=== PATIENT | male | born 1990 | race Two or more races ===

== ENCOUNTER 2024-09-11 18:49 | Emergency (ER) | payer MEDICAID ==
[~2024-09-11] VITALS: Ht 167.6 cm; Wt 63.6 kg
[~2024-09-11 18:49] MED LIST: LEVO750T40 PO
--- NOTE | 2024-09-11 19:41 | ED.PDOC ---
History of Present Illness HPI Comments 34 y/o M, with a history of alcohol induced seizures, is BIBA for c/o alcohol intoxication and possible fall-injury, today. Per EMS report, bystanders called after finding patient intoxicated outside of a grocery outlet following a supposed witnessed fall. On scene, patient was found in same intoxicated state, denying on sustaining any falls, today, but complaining of chronic left-hip pain. He was noted to have had an abrasion to the bridge of his nose and left- elbow from a fall he endorsed on having 1-2 weeks ago. At time of initial assessment with patient, patient is a poor historian and unable to comment further regarding his current intoxicated state or events aside from being told on needing to come to the ED. No family/education instructor present. Chief Complaint: ETOH Time Seen by MD: 19:10 Primary Care Provider: NONE Reviewed Notes: Nurses Notes, Phonograph Cartridge Assembler Notes, Medications, Allergies Allergies: Coded Allergies: NO KNOWN ALLERGIES (Unverified , 08/01/23) Home Meds Active Scripts Levofloxacin Hemihydrate (LEVOFLOXACIN) 750 Mg Tab, 1 TAB PO DAILY, #5 TAB Prov:MALORIE JACQUES MD 08/02/23 Information Source: Patient, Emergency Med Personnel Mode of Arrival: EMS Severity: Moderate Timing: Hours Duration: Since onset Prehospital treatment: 12 Lead EKG, Manager Employment Review of Systems: REVIEW OF SYSTEMS: No fever, no chills, HEENT: No neck pain, no blurred vision Cardiac: No chest pain. No palpitations. Lungs: No shortness of breath, GI: No abdominal pain, no vomiting Musculoskeletal: Left-hip pain, no back pain Skin: No rash, no wound Neuro: EtOH intoxication. No headache, no dizziness, no syncope Vital Signs Vital Signs Date Time Temp Pulse Resp B/P (MAP) Pulse Ox O2 Delivery O2 Flow Rate FiO2 09/11/24 22:58 97.5 94 21 127/93 (104) 98 97.5 09/11/24 22:58 Room Air* 0 21 Physical Exam General: Awake, alert and oriented. No acute distress. Skin: Skin in warm, dry and intact without rashes or lesions. HEENT: Left-conjunctival erythema. Abrasion to bridge of nose. Otherwise, the head is normocephalic and atraumatic. Right conjunctiva is clear without exudates or hemorrhage. Sclera is non-icteric. Neck: Normal range of motion. No JVD. Cardiac: Regular rate Respiratory: No signs of respiratory distress. No Stridor. Extremities: Upper and lower extremities are atraumatic in appearance without deformity. Neurological: Normal [id number] test. The patient is awake, alert and oriented to person, place, and time with normal speech. Speech is clear. There is no facial asymmetry. Normal gait. Psychiatric: Appropriate mood and affect. Good judgement and insight. Musculoskeletal: Left-paraspinal lumbar tenderness. Mild abrasion to left-elbow. Otherwise, normal inspection Past Medical History Past Medical History (Other): Alcohol induced seizures Surgical History: Denies all surgeries Family History Family History: Unknown Social History Smoker: Non-Smoker Alcohol: Heavy Drugs: Marijuana Lives In: Home Was a procedure done? Was a procedure done?: No Differential Dx Considerations may include: Alcohol intoxication, substance dependency, polysubstance abuse, toxic metabolic encephalopathy, electrolyte imbalance, dehydration, abrasions, contusions, fractures, dislocation, intracranial hemorrhage, among others X-Ray, Labs, Meds, VS Vital Signs Date Time Temp Pulse Resp B/P (MAP) Pulse Ox O2 Delivery O2 Flow Rate FiO2 09/11/24 22:58 97.5 94 21 127/93 (104) 98 97.5 09/11/24 22:58 20 98 Room Air* 0 21 09/11/24 18:51 97.1 130 20 145/100 (115) 98 97.1 Current Medications Medications (Trade) Dose Ordered Sig/Harriet Route Start Time Stop Time Status Last Admin Acetaminophen (Tylenol Tablet) 650 mg ONCE ONCE PO 09/11/24 19:15 09/11/24 19:16 DC 09/11/24 23:00 [place] [id number] Ph: [phone] DIAGNOSTIC IMAGING Diagnostic Imaging Report : [id number] Signed PATIENT: DAYANA GHOSH ACCT: [id number] UNIT: [id number] : 1990 LOC: ER ROOM / BED: / AGE / SEX: 34 / M ADM STATUS: REG ER SERVICE [id number] ORDERING PHYSICIAN: DARIEL BARRY MD PROCEDURE(s): LUMB2 - LUMBAR SPINE 3 VIEW REASON: Low back pain ORDER NUMBER(s): [id number], ACCESSION NUMBER(s): [id number] INDICATION: Low back pain COMPARISON: None TECHNIQUE: AP and lateral radiographs of the lumbar spine. FINDINGS: Mild thoracolumbar scoliosis convex to the right. No listhesis. The lumbar vertebral bodies, T11 and T12 are normal in appearance with no evidence of fracture. The intervertebral disc spaces are normal. Facet and SI joints appear unremarkable. IMPRESSION: No evidence of fracture in the lumbar spine. Mild thoracolumbar dextroscoliosis. Otherwise unremarkable study. ATED BY: LUCAS DUONG MD DICTATED DATE/TIME: 09/11/242148 SIGNED BY: LUCAS DUONG MD SIGNED DATE/TIME: 09/11/242148 CC: Time of 1ST Reevaluation: 19:40 Reevaluation 1ST: Unchanged Patient Education/Counseling: Need For Follow Up Family Education/Counseling: No Family Present Departure 1 Departure Time of Disposition: 01:52 Impression: Primary Impression: Low back pain Disposition: 01 HOME / SELF CARE / HOMELESS Condition: Stable Additional Instructions: ED DISCHARGE INSTRUCTIONS Instructions: Please read all instructions provided in this packet carefully. Although you have been discharged from the Emergency Department, this does not mean that you have a "clean bill of health". No definitive diagnosis for your symptoms has been made today. It is possible that you are in the process of developing a serious illness. This is why you must return to the ED without fail if any new or worsening symptoms (especially if your symptoms include chest pain, trouble breathing, abdominal pain, fever, headache, confusion, trouble seeing, or trouble walking) It is also very important that you see a primary care doctor within the next 3-5 days to follow up. If you are unable to get an appointment, return to the ED for re-evaluation. Back Pain: Care Instructions Table of Contents Overview How can you care for yourself at home? When should you call for help? Credits Overview In most cases, there isn't a clear cause for back pain. It may be related to problems with muscles and ligaments of the back. It may also be related to problems with the nerves, discs, or bones of the back. Moving, lifting, standing, sitting, or sleeping in an awkward way can strain the back. Arthritis is another cause of back pain. Although it may hurt a lot, back pain usually improves on its own within several weeks. Most people recover in 12 weeks or less. Using self-care, such as ice or heat and light activity (like walking) may help you feel better sooner. Follow-up care is a mallory part of your treatment and safety. Be sure to make and go to all appointments, and call your doctor if you are having problems. It's also a good idea to know your test results and keep a list of the medicines you take. How can you care for yourself at home? Sit or lie in positions that are most comfortable and reduce your pain. Try one of these positions when you lie down: Lie on your back with your knees bent and supported by pillows. Lie on the floor with your legs on the seat of a sofa or chair. Lie on your side with your knees and hips bent and a pillow between your legs. Lie on your stomach if it does not make pain worse. Do not sit up in bed, and avoid soft couches and twisted positions. Bed rest can help relieve pain at first, but it delays healing. Avoid bed rest after the first day of back pain. Change positions every 30 minutes. If you must sit for long periods of time, take breaks from sitting. Get up and walk around, or lie in a comfortable position. Try using a heating pad on a low or medium setting for 15 to 20 minutes every 2 or 3 hours. Try a warm shower in place of one session with the heating pad. You can also try an ice pack for 10 to 15 minutes every 2 to 3 hours. Put a thin cloth between the ice pack and your skin. Take pain medicines exactly as directed. If the doctor gave you a prescription medicine for pain, take it as prescribed. If you are not taking a prescription pain medicine, ask your doctor if you can take an ymam-cho-axvbanx medicine. Take short walks several times a day. You can start with 5 to 10 minutes, 3 or 4 times a day, and work up to longer walks. Walk on level surfaces and avoid hills and stairs until your back is better. Return to work and other activities as soon as you can. Continued rest without activity is usually not good for your back. To prevent future back pain, do exercises to stretch and strengthen your back and stomach. Learn how to use good posture, safe lifting techniques, and proper body mechanics. When should you call for help? Call your doctor now or seek immediate medical care if: You have new or worsening numbness in your legs. You have new or worsening weakness in your legs. (This could make it hard to stand up.) You lose control of your bladder or bowels. Watch closely for changes in your health, and be sure to contact your doctor if: You have a fever, lose weight, or don't feel well. You do not get better as expected. Credits for Back Pain: Care Instructions Current as of: November 24, 2022 Author: [employer], [employer] Clinical Review Board All [employer] education is reviewed by a team that includes physicians, nurses, advanced practitioners, registered dieticians, and other healthcare professionals. e-Prescriptions Ibuprofen Micronized (Ibuprofen) 400 Mg Tab 400 MG PO TIDPRN PRN for 5 Days, #15 TAB Prov: DARIEL BARRY MD 09/12/24 Acetaminophen (Acetaminophen) 500 Mg Tab 500 MG PO TIDPRN PRN for 5 Days, #15 TAB Prov: DARIEL BARRY MD 09/12/24 Comments 34-year-old male who presented to the emergency department with fall. He was reporting lower back pain. Patient has been able to ambulate around the emergency department without difficulty. There was no neuro deficit on exam. Reports improvement of his back pain. X-ray negative for any acute fracture. Patient is felt stable for discharge home to follow up with his primary care provider for further evaluation. Extensive evaluation was performed in attempt to identify or rule out: (See differential diagnosis section) The following tests were ordered, and results were reviewed by me and discussed with patient: (See diagnostic results section) The following test were independently interpreted by me: N/A I reviewed the following notes from the pt's past medical encounters: August 01, 2023 encounter for seizures Additional information was gathered from interviewing the following independent historians: EMS Discussion of management or test interpretation with external physician/other qualified health in home caregiver: N/A Decision regarding hospitalization or escalation of hospital level of care: Risks and benefits of admission for further treatment of patient's condition was considered however due to patient's stable condition patient will be discharged to follow up closely or return to care for worsening of condition or inability to follow up. Critical Care Note Critical Care Time?: No Stability Stability form required: No Heart Score Heart Score: Heart Score Response (Comments) Value History N/A 0 EKG N/A 0 Age N/A 0 Risk Factors N/A 0 Troponin N/A 0 Total 0 I personally scribed for DARIEL BARRY MD ([email or web address]) on 09/11/24 at 19:41. Electronically submitted by Daryl Suarez ([email or web address]). I personally scribed for DARIEL BARRY MD ([email or web address]) on 09/11/24 at 20:08. Electronically submitted by Daryl Suarez ([email or web address]). I personally scribed for DARIEL BARRY MD ([email or web address]) on 09/11/24 at 22:03. Electronically submitted by Daryl Suarez ([email or web address]). DARIEL BARRY MD September 11, 2024 19:41
--- NOTE | 2024-09-11 21:51 | DVH ---
INDICATION: Low back pain COMPARISON: None TECHNIQUE: AP and lateral radiographs of the lumbar spine. FINDINGS: Mild thoracolumbar scoliosis convex to the right. No listhesis. The lumbar vertebral bodies, T11 and T12 are normal in appearance with no evidence of fracture. The intervertebral disc spaces are normal. Facet and SI joints appear unremarkable. IMPRESSION: No evidence of fracture in the lumbar spine. Mild thoracolumbar dextroscoliosis. Otherwise unremarkab le study.
[2024-09-11 22:58] VITALS: RESP 20; O2SAT 98
[2024-09-11] MEDS: ACETAMINOPHEN 325 MG TAB PO ONE (23:00)
[2024-09-12] MEDS ORDERED: IBUP1TAB4 PO (01:54)
[2024-09-12] MEDS ORDERED: ACET500T58 PO (01:54)
[2024-09-12 02:05] VITALS: BP 124/89; PULSE 83; RESP 21; TEMP 98.4; O2SAT 98
[2024-09-12] MEDS: KETOROLAC TROMETH 30 MG/ML 1ML VIAL IM ONE (02:05)
== END 2024-09-12 02:11 | disposition home or self-care (01) ==
LOC: ER 18:49 → EDBD 18:49 → ER 09-12 02:09
DX: M54.50 Low back pain, unspecified (principal); F12.90 Cannabis use, unspecified, uncomplicated; F10.129 Alcohol abuse with intoxication, unspecified; Z79.899 Other long term (current) drug therapy
CPT/HCPCS: 72100; 96372; 99283; J1885